=== PATIENT | male | born 1990 | race Caucasian/White ===

== ENCOUNTER 2018-02-08 11:43 | Inpatient (IN) | payer OTHER ==
[~2018-02-08] VITALS: Ht 170.2 cm; Wt 49.9 kg
[2018-02-08] MEDS ORDERED: METHOCARBAMOL 750 MG TABLET PO PRN (12:15)
[2018-02-08] MEDS ORDERED: LORAZEPAM 1 MG TABLET PO PRN ×2 (12:15)
[2018-02-08] MEDS ORDERED: BUPRENORPHINE HCL 2 MG TAB.SUBL SL PRN (12:15)
[2018-02-08] MEDS ORDERED: LORAZEPAM 2 MG/1 ML VIAL IM PRN (12:15)
[2018-02-08] MEDS ORDERED: DICYCLOMINE HCL 20 MG TABLET PO PRN (12:15)
[2018-02-08] MEDS ORDERED: ONDANSETRON 4 MG/2 ML VIAL IM PRN (12:15)
[2018-02-08] MEDS ORDERED: ONDANSETRON ODT 4 MG TAB.RAPDIS SL PRN (12:15)
[2018-02-08] MEDS ORDERED: ACETAMINOPHEN 325 MG TABLET PO PRN (12:15)
[2018-02-08] MEDS ORDERED: MIRALAX 17 GM POWD.PACK PO PRN (12:15)
[2018-02-08] MEDS ORDERED: LOPERAMIDE HCL 2 MG CAPSULE PO PRN ×2 (12:15)
[2018-02-08] MEDS ORDERED: MAGNESIUM HYDROXIDE 30 ML LIQUID UDC PO PRN (12:15)
[2018-02-08] MEDS ORDERED: MAG HYDROX/AL HYDROX/SIMETH 30 ML LIQUID UDC PO PRN (12:15)
--- NOTE | 2018-02-08 12:50 | NUR ---
PREASSESSMENT: RECEIVED PT A/O X 4 IN INTAKE. HIS GAIT IS STEADY. PILOERECTION TO SKIN NOTED. HE REPORTS SHILLS,SWEATS,AND BODY ACHES. HE USED HEROIN AND METH ON THE AND 2 MG XANAX PO AND 30 MG OF ADDERALL TODAY. HE ALSO SMOKED A PIPE LOAD OF POT TODAY. ALLERGY TO IBUPROFEN. NO HOME MEDS BROUGHT IN. NO SZ HX. WILL FURTHER ASSESS PT ON UNIT.
[2018-02-08 12:54] VITALS: BP 96/60
[2018-02-08 13:08] VITALS: BP 96/60
[2018-02-08] MEDS: BUPRENORPHINE HCL 2 MG TAB.SUBL SL SCH ×3 (13:23→20:28)
[2018-02-08 14:22] LABS: *AMPHETAMINE, URINE POSITIVE (NEGATIVE); *BARBITURATE, URINE NEGATIVE (NEGATIVE); *CANNABINOID, URINE NEGATIVE (NEGATIVE); *COCCAINE, URINE NEGATIVE (NEGATIVE); *OPIATE, URINE POSITIVE (NEGATIVE); *PHENCYCLIDINE SCREEN,URINE NEGATIVE (NEGATIVE)
--- NOTE | 2018-02-08 15:02 | NUR ---
ADMISSION: A [age] Y O MALE BEING ADMITTED FOR MEDICALLY SUPERVISED WITHDRAWAL OF XANAX AND HEROIN. HE ALSO REPORTS USING METHAMPHETAMINE ,ADDERALL AND MARIJUANA.. HE IS CURRENTLY EXPERIENCING S/S OF W/D WHICH INCLUDE CHILLS,(PILOERECTION OF SKIN ON ARMS),BODY ACHES, SWEATS,ANXIETY,STOMACH CRAMPS AND ANXIETY. PT APPEARS EMACIATED AND FRAIL. HE IS DISHEVELED. COWS 18 CIWA 6 ON ADMISSION. HIS SKIN IS WARM ,MOIST AND INTACT. NO EDEMA NOTED. PT REPORTS CURRENT USE FOLLOWS: 1. XANAX 2 MG PO 5 X WEEKLY. LAST USED 2 MG PO TODAY . 2. HEROIN SMOKES 2-3 GMS DAILY. LAST USE 02/06/18 3. METH. SMOKES 1/2-1 GM DAILY . LAST USED 02/06/18. ADDERALL 30-60 MG PO DAILY. LAST USED TODAY. HE ALSO SMOKES POT ON OCCASION AND SMOKED A PIPE FULL TODAY. HE HAS BEEN USING SUBSTANCES IN THIS PATTERN FOR 1 YEAR. HE WAS IN TREATMENT 18 MONTHS AGO AND PUT TOGETHER 6 MONTHS AFTER [facility] BUT STATES THE AMOUNT OF MONEY AND WORKING FROM HOME TRIGGERED A RELAPSE 1 YR AGO. HE STATES IT IS INTERFERING WITH HIS RELATIONSHIPS AND MAKING HIS LIFE UNMANAGEABLE. HE STATES HE CANNOT STOP USING ON HIS OWN AND NEEDS HELP. HE DENIES PCP. ALLERGY TO IBUPROFEN. NO SZ HX. NO HOME MEDS BROUGHT IN. PMH OF ANXIETY AND DEPRESSION. HE DENIES S/I AND H/I. VS WNL ORIENTED PT TO STAFF AND UNIT. MEDICATED HIM WITH SUBUTEX 4 MG SL ORDERED PER MD. EDUCATED PT ON PLAN OF CARE. ENCOURAGED INCREASED FLUIDS. PT STATES HE WANTS TO LAY DOWN. BED LOW AND LOCKED. CALL SNOW IN REACH. WILL CONTINUE TO MONITOR AND MANAGE S/S OF W/D.
[2018-02-08 15:08] LABS: BASOPHILS % (AUTO) 0.6 % (0.0-2.0); EOSINOPHILS % (AUTO) 0.4 % (0.0-7.0); HEMATOCRIT 39.9 % (36.7-47.1); HEMOGLOBIN 13.6 g/dL (12.5-16.3); LYMPHOCYTES # (AUTO) 1.1 K/uL (20.0-40.0); LYMPHOCYTES % (AUTO) 14.3 % (20.5-51.5); MEAN CORPUSCULAR HEMOGLOBIN 28.4 uug (23.8-33.4); MEAN CORPUSCULAR HGB CONC 34 g/dL (32.5-36.3); MONOCYTES # (AUTO) 0.5 K/uL (2.0-10.0); MONOCYTES % (AUTO) 7.1 % (0.0-11.0); NEUTROPHILS # (AUTO) 5.8 K/uL (1.8-8.9); NEUTROPHILS % (AUTO) 77.6 % (38.5-71.5); PLATELET COUNT (AUTO) 287 K/uL (152-348); WHITE BLOOD COUNT (AUTO) 7.4 K/uL (3.6-10.2)
[2018-02-08 15:25] LABS: ALANINE AMINOTRANSFERASE 23 U/L (16-63); ALKALINE PHOSPHATASE 92 U/L (50-136); ASPARTATE AMINOTRANSFERASE 15 U/L (15-37); BILIRUBIN,TOTAL 0.3 mg/dL (0.2-1.0); CARBON DIOXIDE 33 mmol/L (21-32); CHLORIDE 103 mmol/L (98-107); CREATININE 0.9 mg/dL (0.6-1.3); GLUCOSE 121 mg/dL (74-106); MAGNESIUM 2.2 mg/dL (1.8-2.4); POTASSIUM 3.8 mmol/L (3.5-5.1); UREA NITROGEN, BLOOD 8 mg/dL (7-18)
[2018-02-08 15:33] LABS: ETHANOL < 3 MG/DL (0-0)
[2018-02-08 17:00] VITALS: BP 101/53
--- NOTE | 2018-02-08 18:21 | NUR ---
END OF SHIFT: NEW PT 27 YO CAME IN FOR BZO/OPIATE W/D. STARTED ON SUBUTEX TAPER LAST COWS 16. ATIVAN TAPER STARTS TONIGHT. LAST CIWA 11. HE HAS BEEN RESTING IN BED SINCE ADMISSION. HE IS COMPLIANT WITH INCREASING FLUIDS. CHILLS,SWEATS,BODY ACHES AND STOMACH CRAMPS REPORTED. HE STATES THE SUBUTEX IS HELPFUL IN REDUCING S/S OF W/D. WILL PASS SHIFT REPORT TO ONCOMING NIGHT NURSE.
--- NOTE | 2018-02-08 19:00 | NUR ---
Start of Shift 27 y/o male admitted today, 02/08/18, for Xanax, Methamphetamine, Adderall, Heroin and Marijuana Withdrawal/Detox.. Pt found laying supine in bed with sweat shirt and fuentes up, covers, arouses immediately to nurses' entry. Pleasant, cooperative, states anxiety and tremors, concerns with dreams and night terrors. Nurses advised to approach with caution during sleep. Report gives CIWA AT 11, COWS at 16. NO PRN medications administered. Scheduled to start Ativan 2 mg PO at 2100 with Neurontin 300mg PO and Subutex 4mg PO. all needs attended to promptly. Will continue plan of care as ordered.
[2018-02-08] MEDS: GABAPENTIN 300 MG CAPSULE PO SCH (20:27)
[2018-02-08 21:00] VITALS: BP 113/67
[2018-02-08] MEDS ORDERED: LORAZEPAM 1 MG TABLET PO SCH (21:00)
[2018-02-09] VITALS (7 sets, daily range): BP systolic 101–114; BP diastolic 57–72
--- NOTE | 2018-02-09 03:10 | NUR ---
PRN Medication Administration Patient is noted awake and verbalizing increased anxiety, restless, agitated, tremulous, increased back spasms, sensitivity to light. CIWA noted to be 14 and COWS 10. PRN Ativan 2mg and PRN Robaxin administered.
--- NOTE | 2018-02-09 04:15 | NUR ---
PRN Medication Reassessment Patient is noted in bed sleeping. breathing even and non labored. No signs of restlessness or discomfort noted. patient was given PRN Robaxin and PRN Ativan for increased CIWA score of 14 and body aches of 10. PRN Medications noted to be effective. Will continue to monitor.
--- NOTE | 2018-02-09 07:23 | NUR ---
27 y/o male that continues on a modified Subutex and Ativan taper. He was noted with increased anxiety, restlessness, agitation, alternating chills and sweat, and light sensitivity. Patient received PRN Ativan 2mg for increased CIWA of 14 and PRN Robaxin for back spasms. PRN Medications noted to be effective. Last noted CIWA 14 and COWS 10. Patient slept a total of 4 hours. all needs attended to promptly. Will endorse to continue plan of care as ordered.
--- NOTE | 2018-02-09 07:30 | NUR ---
START OF SHIFT Pt is a 27 yr old male, admitted on 02/08/18 for Benzo/Opiate w/d and is on Ativan PRN for s/s of w/d and on a 5 day Subutex taper as ordered. Received report from night worker nurse. Pt received Ativan 2mg PO PRN and Robaxin 750mg PO PRN at night. Medication was effective. Pt slept for 5 hrs. Last COWS score was 10 and CIWA score was 14 at 0304. Pt is currently in bed sleeping with respirations even and unlabored. Skin is intact. warm and moist to touch. Safety precautions observed. Call light is within reach. Will continue to monitor.
--- NOTE | 2018-02-09 08:00 | NUR ---
COWS AND CIWA SCORE DEFERRED Pt is currently in bed sleeping with respirations even and unlabored. RR. 18. COWS and CIWA are not able to be assessed at this time and will be deferred. Will continue to monitor.
[2018-02-09 08:06] LABS: HEPATITIS B SURFACE AG Negative (Negative)
[2018-02-09] MEDS ORDERED: TUBERCULIN,PURIF.PROT.DERIV. 5 TU/0.1 ML TEST ID ONE (09:00)
[2018-02-09] MEDS: GABAPENTIN 300 MG CAPSULE PO SCH ×2 (09:19→21:38)
[2018-02-09] MEDS: BUPRENORPHINE HCL 2 MG TAB.SUBL SL SCH ×3 (09:19→21:38)
--- NOTE | 2018-02-09 09:20 | NUR ---
REFUSED TB Pt refused to have TB skin test done. Pt states of having done the TB skin test 2 months ago. Pt was educated on the importance of TB. Pt continues to refuse. Will f/u with
--- NOTE | 2018-02-09 14:35 | NUR ---
PRN GIVEN Pt c/o increase anxiety with agitation. Pt is observed with fine tremors on bilateral hands and skin is moist to touch. CIWA score was 11. Ativan 1mg PO PRN was given as ordered. Medication nicolas well. Will continue to monitor.
--- NOTE | 2018-02-09 16:00 | NUR ---
PRN RE-ASSESSMENT Ativan 1mg PO PRN was effective. Pt continues to c/o anxiety but is able to cope with anxiety level. CIWA score was 8. Pt is c/o abdominal cramps. Pt was offered Bentyl 20mg PO PRN as ordered. But Pt refused to take. Will continue to monitor.
--- NOTE | 2018-02-09 19:02 | NUR ---
END OF SHIFT Pt is a 27 yr old male, AA&Ox4. Pt was admitted on 02/08/18 for Opiate/Benzo withdrawal and is on 5 day Subutex taper and Ativan PRN for s/s of w/d. Medication was nicolas well. Pt was cooperative with medication regimen and plan of care. Pt was encouraged to attend group but refused to attend during the day. Pt was noted with increase drowsiness and remained in his room throughout the day. Pt was noted with facial sweats and fine tremors on bilateral hands. Pt c/o increase anxiety and received Ativan 1mg PO PRN at 1435 for CIWA score of 11. Medication was effective. Last CIWA score was 8 at 1600 and COWS score was 11 at 1600. Pt c/o abdominal cramping, Bentyl PRN was offered but pt refused to take the medication. Pt was encouraged increase fluid intake. Pt was able to consume 50-100 % of meals. Pt is on fall and seizure precautions. Call light is within reach.
--- NOTE | 2018-02-09 19:30 | NUR ---
START OF SHIFT NOTE : Pt. is a 27 yr old male, admitted on 02/08/18 for Benzo/Opiate w/d and is on Ativan PRN for s/s of w/d and placed a 5 day Subutex taper as ordered. PRN Ativan given during a day shift. Last CIWA=8, COWS=11 at 16:00 when pt. was alert. Pt is currently in bed watching TV, sad facial impression, states he thinks about his future professional life a lot. Skin is intact. warm and dry to touch. He complains of insomnia, increased level of anxiety, flashes. Encouraged patient to participate in all unit activities and socializing more with other clients. Safety measures in place : bed on lowest position with side rails x2 up for safety, all light within reach. Will continue to monitor closely and offer help.
--- NOTE | 2018-02-09 21:00 | NUR ---
PRN VISTARIL Pt. complains of increased level of anxiety. PRN VISTARIL given as ordered. Safety measures in place : bed on lowest position with side rails x2 up for safety, call light within reach. Will continue to monitor closely and offer help.
[2018-02-09] MEDS: HYDROXYZINE PAMOATE 25 MG CAPSULE PO PRN (21:38)
--- NOTE | 2018-02-09 22:00 | NUR ---
RE-ASSESSMENT AMRITA Pt. is sleeping, RR=16, unlabored and even . Safety measures in place : bed on lowest position with side rails x2 up for safety, call light within reach. Will continue to monitor closely and offer help.
--- NOTE | 2018-02-10 06:31 | NUR ---
END OF SHIFT NOTE : Pt. is a 27 yr old male, admitted on 02/08/18 for Benzo/Opiate w/d and is on Ativan PRN for s/s of w/d and placed a 5 day Subutex taper as ordered PRN given during stick roller : VISTARIL. CIWA, COWS taken when pt. was awake, last CIWA=8, COWS=8 at 05:00 . Intake= 1.296ml, voided x2, BM=x1, slept= 4 hours. Safety measures in place : bed on lowest position with side rails x2 up for safety, all light within reach. Will continue to monitor closely and offer help.
--- NOTE | 2018-02-10 07:23 | NUR ---
START OF SHIFT Pt is a 27 yr old male, admitted on 02/08/18 for Benzo/Opiate w/d and is on a 5 day Subutex taper and Ativan PRN for s/s of w/d as ordered. Received report from operator coating furnace nurse. Pt received Vistaril 25mg PO PRN at night. Medication was effective. Pt slept for 4 hrs. Last COWS score was 8 and CIWA score was 8 at 0400. Pt is currently in bed sleeping with respirations even and unlabored. Skin is intact, warm and moist to touch. Pt is on fall and seizure precautions. Bed kept in low position and locked with side rails up x2. Safety precautions observed. Call light is within reach. Will continue to monitor.
[2018-02-10 08:08] VITALS: BP 95/60
[2018-02-10] MEDS: GABAPENTIN 300 MG CAPSULE PO SCH ×3 (08:45→21:19)
[2018-02-10] MEDS ORDERED: BUPRENORPHINE HCL 2 MG TAB.SUBL SL SCH (09:00)
--- NOTE | 2018-02-10 09:30 | NUR ---
NSG NOTES Pt c/o abdominal cramping. Pt denies any episodes of diarrhea or constipation. Bentyl 20mg PO PRN was offered as ordered but pt refused to take. Pt states of not having a appetite and ate 25% of breakfast. Pt denies any n/v. Enocuraged increase fluid intake. Will continue to monitor.
[2018-02-10] MEDS ORDERED: LORAZEPAM 1 MG TABLET PO PRN ×2 (11:30)
[2018-02-10 12:14] VITALS: BP 93/60
[2018-02-10] MEDS: BUPRENORPHINE HCL 2 MG TAB.SUBL SL SCH ×2 (15:31→21:18)
[2018-02-10 16:00] VITALS: BP 116/74
--- NOTE | 2018-02-10 19:17 | NUR ---
END OF SHIFT Pt is a 27 yr old male, AA&Ox4. Pt was admitted on 02/08/18 for Opiate/Benzo withdrawal and is on 5 day Subutex taper and Ativan PRN for s/s of w/d. Medication was nicolas well. Pt was cooperative with medication regimen and plan of care. Pt continues to be observed with increase drowsiness and remained in his room throughout the day. Pt was encouraged to attend group but refused to attend claiming he has social anxiety. Skin is intact, warm and moist to touch. Pt c/o cold chills and abdominal cramping. No PRN's were given. Last COWS score was 9 and CIWA score was 6 at 1600. Pt was encouraged increase fluid intake. Pt was able to consume 50-100 % of meals. Pt is on fall and seizure precautions. Call light is within reach.
--- NOTE | 2018-02-10 19:30 | NUR ---
START OF SHIFT NOTE : Pt. is a 27 yr old male, admitted on 02/08/18 for Benzo/Opiate w/d and is on Ativan PRN for s/s of w/d and placed a 5 day Subutex taper as ordered. No PRNs given during a day shift. Last CIWA=6, COWS=9 at 16:00 when pt. was alert. Pt is currently in the activity room watching TV, anxious, sad facial impression. Skin is intact. warm and dry to touch. He complains difficulty falling and staying asleep, increased level of anxiety, flashes time to time. Encouraged patient to participate in all unit activities and socializing more with other clients. Safety measures in place : bed on lowest position with side rails x2 up for safety, all light within reach. Will continue to monitor closely and offer help.
[2018-02-10 20:00] VITALS: BP 124/75
[2018-02-10] MEDS ORDERED: LORAZEPAM 1 MG TABLET PO SCH (21:00)
--- NOTE | 2018-02-10 21:00 | NUR ---
PRN VISTARIL, CLONIDINE Pt. complains of increased level of anxiety. PRN VISTARIL, CLONIDINE given as ordered. Safety measures in place : bed on lowest position with side rails x2 up for safety, call light within reach. Will continue to monitor closely and offer help.
[2018-02-10] MEDS: HYDROXYZINE PAMOATE 25 MG CAPSULE PO PRN (21:19)
[2018-02-10] MEDS: CLONIDINE HCL 0.1 MG TABLET PO PRN (21:19)
--- NOTE | 2018-02-10 22:00 | NUR ---
RE-ASSESSMENT VISTARIL, CLONIDINE Pt. is sleeping, RR=16, unlabored and even . Safety measures in place : bed on lowest position with side rails x2 up for safety, call light within reach. Will continue to monitor closely and offer help.
--- NOTE | 2018-02-11 06:22 | NUR ---
END OF SHIFT NOTE : Pt. is a 27 yr old male, admitted on 02/08/18 for Benzo/Opiate w/d and is on Ativan PRN for s/s of w/d and placed a 5 day Subutex taper as ordered PRN given during sports doctor : VISTARIL, CLONIDINE. CIWA, COWS taken when pt. was awake, last CIWA=7, COWS=8 at 04:00 . Intake= 923ml, voided x2, slept=6 hours. Safety measures in place : bed on lowest position with side rails x2 up for safety, all light within reach. Will continue to monitor closely and offer help.
--- NOTE | 2018-02-11 07:08 | NUR ---
START OF SHIFT Pt is a 27 yr old male, admitted on 02/08/18 for Benzo/Opiate w/d and is on a 5 day Subutex taper and Ativan PRN for s/s of w/d as ordered. Received report from overnight associate nurse. Pt received Vistaril 25mg PO PRN and Clonidine 0.1mg PO PRN at night. Medication was effective. Pt slept for 6 hrs. Last COWS score was 8 and CIWA score was 7 at 0400. Pt is currently in bed sleeping with respirations even and unlabored. Skin is intact, warm and moist to touch. Pt is on fall and seizure precautions. Bed kept in low position and locked with side rails up x2. Safety precautions observed. Call light is within reach. Will continue to monitor.
[2018-02-11 08:00] VITALS: BP 97/56
[2018-02-11] MEDS: GABAPENTIN 300 MG CAPSULE PO SCH ×3 (09:15→21:17)
[2018-02-11] MEDS: BUPRENORPHINE HCL 2 MG TAB.SUBL SL SCH ×3 (09:15→21:17)
[2018-02-11 12:00] VITALS: BP 108/65
[2018-02-11] MEDS ORDERED: METH-406 PO (13:34)
[2018-02-11] MEDS ORDERED: DICY20TA28 PO (13:34)
[2018-02-11] MEDS ORDERED: HYDR-3895 PO (13:34)
[2018-02-11] MEDS ORDERED: CLON0.1T14 PO (13:34)
[2018-02-11] MEDS ORDERED: GABA-534 PO ×2 (13:34)
[2018-02-11] MEDS: HYDROXYZINE PAMOATE 25 MG CAPSULE PO PRN (14:39)
[2018-02-11] MEDS: CLONIDINE HCL 0.1 MG TABLET PO PRN (14:40)
--- NOTE | 2018-02-11 14:40 | NUR ---
PRN GIVEN Pt c/o increase anxiety. Clonidine 0.1mg PO PRN and Vistaril 25mg PO PRN was given as ordered. Medication nicolas well. Pt was encouraged to attended group therapy. Pt agreed to attended. Will continue to monitor
--- NOTE | 2018-02-11 15:40 | NUR ---
PRN RE-ASSESSMENT Clonidine PRN and Vistaril PRN was effective. Pt states his anxiety level subsided and is attending group. Will continue to monitor.
[2018-02-11 16:00] VITALS: BP 126/72
--- NOTE | 2018-02-11 18:56 | NUR ---
END OF SHIFT Pt is a 27 yr old male, AA&Ox4. Pt was admitted on 02/08/18 for Opiate/Benzo withdrawal and is on 5 day Subutex taper. Medication was nicolas well. Pt was cooperative with medication regimen and plan of care. Pt attended group therapy as offered. Throughout the day, pt was c/o increase anxiety. Pt received Vistaril 25mg PO PRN and Clonidine 0.1mg PO PRN at 1440. Medication was effective. Pt continues to c/o anxiety but is able to cope with anxiety level. Skin is intact, warm and moist to touch. Pt is noted with fine tremors on BUE. Last COWS score was 9 and CIWA score was 8 at 1600. Pt was encouraged increase fluid intake for hydration. Pt was able to consume 100 % of meals. Pt is on fall and seizure precautions. Call light is within reach.
--- NOTE | 2018-02-11 19:30 | NUR ---
START OF SHIFT NOTE : Pt. is a 27 yr old male, admitted on 02/08/18 for Benzo/Opiate w/d and is on Ativan PRN for s/s of w/d and placed a 5 day Subutex taper as ordered. PRN VISTARIL, CLONIDINE given during a day shift. Last CIWA=8, COWS=9 at 16:00 when pt. was alert. Pt is currently in his room watching TV, anxious, sad facial impression. He states to think a lot about his future social and professional life. Skin is intact. warm and dry to touch. He complains of mild body ache, mild muscle spasm, difficulty falling and staying asleep, increased level of anxiety. Encouraged patient to participate in all unit activities and socializing more with other clients. Safety measures in place : bed on lowest position with side rails x2 up for safety, all light within reach. Will continue to monitor closely and offer help.
[2018-02-11 20:00] VITALS: BP 104/60
[2018-02-11] MEDS: QUETIAPINE FUMARATE 25 MG TABLET PO SCH (21:17)
[2018-02-11] MEDS: CLONIDINE HCL 0.1 MG TABLET PO SCH (21:18)
--- NOTE | 2018-02-12 06:37 | NUR ---
END OF SHIFT NOTE : Pt. is a 27 yr old male, admitted on 02/08/18 for Benzo/Opiate w/d and is on Ativan PRN for s/s of w/d and placed a 5 day Subutex taper as ordered. No PRNs given during vp human resources. CIWA, COWS taken when pt. was awake, last CIWA=8, COWS=8 at 04:00 . Intake= 1,200ml, voided x2, slept=5 hours. Safety measures in place : bed on lowest position with side rails x2 up for safety, all light within reach. Will continue to monitor closely and offer help.
--- NOTE | 2018-02-12 07:33 | NUR ---
Start of Shift Notes: Received patient in his room. Laying in bed with eyes closed. Breathing even and unlabored. Easily arousable. Room appears unkept and odorous. He appears worried with flat affect. Encouraged patient to communicate his feelings and concerns. Patient states "I'm OK." Denies AV hallucinations. Patient is a 27 year old male admitted for opiate and BZO withdrawal. Placed on a 5-day Subutex and PRN Ativan. No PRNs given during the night. Last 8/CI 8. Slept for 5 hours. Educated patient on his current plan of care for the day. Encouraged maintenance of personal hygiene and space, oral fluid intake and group participation to learn new skills to prevent relapse. Will continue to monitor.
[2018-02-12 08:00] VITALS: BP 97/67
[2018-02-12] MEDS: GABAPENTIN 300 MG CAPSULE PO SCH ×3 (08:26→20:43)
[2018-02-12] MEDS ORDERED: BUPRENORPHINE HCL 2 MG TAB.SUBL SL SCH (09:00)
[2018-02-12 12:00] VITALS: BP 104/66
[2018-02-12 16:00] VITALS: BP 110/64
--- NOTE | 2018-02-12 19:03 | NUR ---
End of Shift Notes: Patient completed his 5-day Subutex taper successfully with discharge plans tomorrow. Patient tolerated taper well. VS monitored closely. No significant abnormalities noted. Withdrawal symptoms were closely monitored. Initial COWS 14/CIWA 11, patient presented with anxiety, agitation, yawning, restlessness, runny nose, tremors, and myalgia. Last COWS 11/CIWA 8. Per patient, Subutex has been effective in reducing his withdrawal symptoms. Patient has been calm, cooperative with current plan of care. Able to participate in group and activities despite his withdrawal symptoms. All needs met and attended. Will continue to monitor closely.
--- NOTE | 2018-02-12 19:30 | NUR ---
Start of Shift Notes: Report received from day shift nurse. Per day shift nurse last COWS was 11 and last CIWA was 8 at 1600. Upon start of shift pt was in room watching TV. Pts expression is anxious, especially regarding his discharge tomorrow. Pt states that he is ready to go home. During assessment, pt is AOx3. Lung sounds clear bilaterally. Radial pulse is regular and non-bounding. Abdomen soft and non-tender. Abdominal sounds active x4 quadrants. Skin is warm and dry. Pt denies pain at this time. Pt has completed Ativan and Subutex taper to manage withdrawal symptoms. Bed in lowest position. Side rails up x2. Call light functioning and within reach. All needs attended and met. Will continue to monitor.
[2018-02-12 20:00] VITALS: BP 123/78
[2018-02-12] MEDS: QUETIAPINE FUMARATE 25 MG TABLET PO SCH (20:44)
[2018-02-12] MEDS: CLONIDINE HCL 0.1 MG TABLET PO SCH (20:44)
--- NOTE | 2018-02-13 07:22 | NUR ---
End of Shift Notes: Pt currently in bed with eyes closed. Pt slept for 7 hours. Pts last COWS was 5 and CIWA was 4 at 2000. Pt to has completed ativan and subutex taper to manage withdrawal symptoms and is scheduled to be discharged in the morning. No PRNs given. Fall and Sz precautions observed. Bed in lowest position. Side rails up x2. Call light functioning and within reach. All needs attended and met. Will endorse to day shift nurse.
--- NOTE | 2018-02-13 07:30 | NUR ---
START OF SHIFT PT IS A 27 Y/O M ADMITTED ON 02/08/18 FOR BENZO AND OPIATE W/D. PT HAS COMPLETED ATIVAN AND SUBUTEX TAPER AND IS MEDICALLY CLEARED TO BE DISCHARGED TODAY. PT REPORTS HAVING ANXIETY ABOUT BEING DISCHARGED. LAST COWS 5 AND CIWA 4 @1999, PT SLEPT FOR 8 HOURS. NO PRNS GIVING DURING MOLD STAMPER AND REPAIRER. SIDE RAILS UPX2, BED IN LOWEST POSITION, CALL LIGHT IS WITHIN REACH. WILL CONTINUE TO MONITOR.
[2018-02-13 08:00] VITALS: BP 96/61
[2018-02-13] MEDS: GABAPENTIN 300 MG CAPSULE PO SCH (08:14)
--- NOTE | 2018-02-13 10:15 | NUR ---
DISCHARGE NOTE PT IS IN STABLE CONDITION, A/OX4, RESPIRATIONS EVEN AND UNLABORED, VVS. PT INSTRUCTIONS GIVEN AND PT VERBALIZED UNDERSTANDING. PT LAST COWS 4 CIWA 4 @0800. PT LEFT THE BUILDING AT 1015 ON 02/13/18 WITH ALL BELONGINGS, DISCHARGE PAPERWORK, AND PRESCRIPTIONS. PT HAS BEEN PICKED UP BY A FAMILY MEMBER.
== END 2018-02-13 10:15 | disposition home or self-care (01) | DRG 895 ==
LOC: SRC 11:43
PROVIDERS: ADMIT Internal Medicine; ATTEND Internal Medicine
PROC: HZ2ZZZZ Detoxification Services for Substance Abuse Treatment (ICD-10-PCS; principal; 2018-02-08)
PROC: HZ41ZZZ Group Counseling for Substance Abuse Treatment, Behavioral (ICD-10-PCS; 2018-02-11)
PROC: HZ31ZZZ Individual Counseling for Substance Abuse Treatment, Behavioral (ICD-10-PCS; 2018-02-11)
DX: F11.23 Opioid dependence with withdrawal (principal); E87.3 Alkalosis; F17.210 Nicotine dependence, cigarettes, uncomplicated; F15.23 Other stimulant dependence with withdrawal; F90.9 Attention-deficit hyperactivity disorder, unspecified type; F41.9 Anxiety disorder, unspecified; Z82.49 Family history of ischemic heart disease and other diseases of the circulatory system; Z83.49 Family history of other endocrine, nutritional and metabolic diseases; E86.0 Dehydration; R73.9 Hyperglycemia, unspecified; F32.9 Major depressive disorder, single episode, unspecified
CPT/HCPCS: 36415; 70030-TC; 80307; 80324; 80346; 80361; 83735; 85025; 86580; 86592; 86705; 86803; 87340; 87806; G0480